=== PATIENT | male | born 1965 | race Caucasian/White ===

== ENCOUNTER → 2018-10-25 | Outpatient (CLI) | payer OTHER ==
--- NOTE | 2018-10-25 16:13 | RAD ---
Right lower extremity venous duplex study 10/25/2018 4:09 PM Clinical History: Right leg pain and swelling Technique: Using a combination of real time ultrasound imaging and color-flow and pulse Doppler imaging techniques, including spectral analysis, graded compression and augmentation, duplex evaluation of the deep venous system of the right lower extremity was performed. Multiple images were obtained. Findings: There is no sonographic evidence of deep venous thrombosis involving the visualized deep venous structures of the right lower extremity Impression: No evidence of deep venous thrombosis involving the right lower extremity Electronically signed by: Sujit Crabtree MD (10/25/2018 4:10 PM) [id number]
== END | disposition home or self-care (01) ==
LOC: US 15:14
PROVIDERS: ATTEND Family Medicine
DX: M79.604 Pain in right leg (principal); M79.89 Other specified soft tissue disorders; Z86.718 Personal history of other venous thrombosis and embolism
CPT/HCPCS: 93971

== ENCOUNTER 2020-03-23 04:56 | Inpatient (IN) | payer OTHER ==
[~2020-03-23] VITALS: Ht 180.3 cm; Wt 114.0 kg
[2020-03-23 05:37] LABS: BILIRUBIN,URINE NEG (NEG); CLARITY,URINE CLEAR; COLOR,URINE AMBER; GLUCOSE,URINE NEG (NEG)
[2020-03-23 05:38] LABS: BACTERIA,URINE 0 /HPF (0-FEW); NITRITE,URINE NEG (NEG); RBC,URINE 0 /HPF (0-2); WBC,URINE 0 /HPF (0-4)
--- NOTE | 2020-03-23 05:51 | PHYS DOC ---
Past History Past Medical History: GERD, Hypertension, Kidney Stones (ASHLEE CASTELAN DO) Past Surgical History: Other Additional Past Surgical Histo: abdominal surgery (ASHLEE CASTELAN DO) Smoking: Non-smoker Alcohol Use: Heavy Drug Use: None (ASHLEE CASTELAN DO) General Adult EDM: Chief Complaint: ABDOMINAL PAIN HPI: HPI: 54-year-old male presents with left lower quadrant abdominal pain with associated nausea x2 days. Patient reports he did have one episode of vomiting. Patient reports some associated constipation and fever T-max 101. Patient reports history of prior kidney stones and feels the symptoms are similar to his prior kidney stone episodes. Denies any trauma. Denies rash. Denies hematuria or dysuria. Denies history of diverticulitis. (ASHLEE CASTELAN DO) Review of Systems: Review of Systems: Constitutional: Reports fever and chills Eyes: Denies redness or eye pain HENT: Denies nasal congestion or sore throat Respiratory: Denies cough or shortness of breath Cardiovascular: Denies chest pain or palpitations GI: Reports abdominal pain, nausea, vomiting, and constipation : Denies dysuria or hematuria Musculoskeletal: Denies back pain or joint pain Integument: Denies rash or skin lesions Neurologic: Denies headache, focal weakness or sensory changes Complete systems were reviewed and found to be within normal limits, except as documented in this note. (ASHLEE CASTELAN DO) Current Medications: Current Meds: Current Medications Medications (Trade) Dose Ordered Sig/Agnes Start Time Stop Time Status Last Admin Dose Admin Ketorolac Tromethamine (Toradol 15mg Vial) 15 mg 1X ONCE 03/23/20 05:30 03/23/20 05:31 UNV Metoclopramide HCl (Reglan Vial) 10 mg 1X ONCE 03/23/20 05:30 03/23/20 05:31 UNV Sodium Chloride 1,000 ml @ 1,000 mls/hr 1X ONCE 03/23/20 05:30 03/23/20 06:29 UNV (ASHLEE CASTELAN DO) Allergies: Allergies: Allergies Coded Allergies Type Severity Reaction Last Updated Verified No Known Drug Allergies 03/23/20 No (ASHLEE CASTELAN DO) Physical Exam: PE: Constitutional: Well developed, well nourished, no acute distress, non-toxic appearance HENT: Normocephalic, atraumatic Eyes: Conjunctiva normal, no discharge Neck: Normal range of motion, no tenderness, supple Lungs & Thorax: No respiratory distress, equal chest rise and fall Abdomen: Soft, left lower quadrant tenderness on palpation, no guarding Skin: Warm, dry, no erythema, no rash Back: No tenderness, no CVA tenderness Extremities: No tenderness, ROM intact, no edema Neurologic: Alert and oriented X 3, no focal deficits noted Psychologic: Affect normal, judgment normal (ASHLEE CASTELAN DO) Current Patient Data: Labs: Laboratory Tests Test 03/23/20 05:14 Urine Collection Type Unknown Urine Color Catherine Urine Clarity Clear Urine pH 5.5 Urine Specific [employer] >=1.030 Urine Protein Neg (NEG-TRACE) Urine Glucose (UA) Neg mg/dL (NEG) Urine Ketones (Stick) Neg mg/dL (NEG) Urine Blood Neg (NEG) Urine Nitrite Neg (NEG) Urine Bilirubin Neg (NEG) Urine Urobilinogen Dipstick 4.0 mg/dL (0.2 mg/dL) Urine Leukocyte Esterase Neg (NEG) Urine RBC 0 /HPF (0-2) Urine WBC 0 /HPF (0-4) Urine Squamous Epithelial Cells None /LPF Urine Bacteria 0 /HPF (0-FEW) Vital Signs: Vital Signs Date Time Temp Pulse Resp B/P (MAP) Pulse Ox O2 Delivery O2 Flow Rate FiO2 03/23/20 05:03 99.7 101 20 161/92 (115) Room Air (ASHLEE CASTELAN DO) EKG: EKG: [] (ASHLEE CASTELAN DO) Radiology/Procedures: Radiology/Procedures: [] (ASHLEE CASTELAN DO) Impressions: EXAM: CT ABDOMEN/PELVIS WITHOUT CONTRAST. HISTORY: Left lower quadrant pain. TECHNIQUE: Computed tomography of the abdomen and pelvis was performed without intravenous contrast. One or more of the following individualized dose reduction techniques were utilized for this examination: 1. Automated exposure control. 2. Adjustment of the mA and/or kV according to patient size. 3. Use of iterative reconstruction technique. COMPARISON: None. FINDINGS: Lung windows through the visualized portions of the bases reveal mild atelectasis. Bone windows reveal no suspicious lesions. Wall thickening and stranding about the sigmoid colon indicate mild diverticulitis. A few tiny foci of pneumoperitoneum indicate microperforation. There is no drainable collection. The appendix is not inflamed. There is no small bowel obstruction. Small supraumbilical hernias in the midline containing only fat. A right inguinal hernia also contains only fat. Hypoattenuation of the hepatic parenchyma indicates severe diffuse hepatic steatosis. The gallbladder, pancreas, adrenal glands, and spleen are unremarkable. There is a 2 mm calculus in the right kidney. There are no pathologically enlarged lymph nodes. IMPRESSION: 1. Mild sigmoid diverticulitis. Trace adjacent pneumoperitoneum indicates microperforation. No drainable collection. 2. Severe diffuse hepatic steatosis. 3. 2 mm right renal calculus. 4. Small supraumbilical and right inguinal hernias containing only fat. Electronically signed by: Nathaniel Doe MD (03/23/2020 6:43 AM) [facility] DICTATED AND SIGNED BY: DEBBIE DOE MD DATE: 03/23/20642 CC: LILIANE MEJIA DO; ASHLEE CASTELAN DO; CANDIS WHITING ~ (LILIANE MEJIA DO) Course & Med Decision Making: Course & Med Decision Making Pertinent Labs and Imaging studies reviewed. (See chart for details) Patient with past medical history of kidney stones presents with left lower q uadrant abdominal pain with associated nausea and vomiting. Patient also reports some issues with constipation and fever T-max 101. Patient is afebrile upon arrival. Symptomatic treatment provided. IV fluid hydration given. Labs obtained and posted to chart. CT abdomen/pelvis obtained with radiologist interpretation pending. Signout to Dr. Mejia for further evaluation and final disposition. Discussed current findings and plan with patient, who acknowledges understanding and agreement. (ASHLEE CASTELAN DO) Course & Med Decision Making The patient has acute uncomplicated diverticulitis by CT. He also has evidence of microperforation so he meets criteria for inpatient management. I will give him Zosyn and admit him to the hospital. I spoke with Dr. Bowie and he has accepted the patient for admission. The patient is in agreement with this plan. (LILIANE MEJIA DO) Dragon Disclaimer: Dragon Disclaimer: This electronic medical record was generated, in whole or in part, using a voice recognition dictation system. (ASHLEE CASTELAN DO) Departure Departure: Impression: Primary Impression: Left lower quadrant abdominal pain Additional Impression: Diverticulitis Disposition: ADMITTED INPT THIS HOSP Admitting Physician: Janel Bowie (LILIANE MEJIA DO) Condition: STABLE Referrals: CANDIS WHITING (PCP) ASHLEE CASTELAN DO Mar 23, 2020 05:51 LILIANE MEJIA DO Mar 23, 2020 07:05
[2020-03-23] MEDS ORDERED: IV NORMAL SALINE 1,000ML 1,000 ML IV ONE (06:00)
[2020-03-23] MEDS ORDERED: KETOROLAC 15 MG/ML VIAL. IVP ONE (06:00)
[2020-03-23] MEDS ORDERED: METOCLOPRAMIDE HCL 10 MG/2 ML VIAL. IVP ONE (06:00)
[2020-03-23 06:05] LABS: BASO # 0.1 x10^3/uL (0.0-0.2); BASO % 1 % (0-3); EOS # 0.2 x10^3/uL (0.0-0.7); EOS % 1 % (0-3); HEMATOCRIT 44.7 % (39.0-53.0); LYMPH # 1.8 x10^3/uL (1.0-4.8); LYMPH % 15 % (24-48); MEAN CORPUSCULAR HEMOGLOBIN 33 pg (25-35); MEAN CORPUSCULAR HGB CONC 34 g/dL (31-37); MEAN CORPUSCULAR VOLUME 99 fL (79-100); MONO # 1.2 x10^3/uL (0.0-1.1); MONO % 10 % (0-9); NEUT # 8.7 x10^3uL (1.8-7.7); NEUT % 73 % (31-73); PLATELET COUNT 199 x10^3/uL (140-400); RED BLOOD COUNT 4.52 x10^6/uL (4.30-5.70); RED CELL DISTRIBUTION WIDTH 13.3 % (11.5-14.5)
[2020-03-23 06:07] LABS: CALCIUM 8.9 mg/dL (8.5-10.1); CREATININE 0.9 mg/dL (0.7-1.3); GFR 87.3; POTASSIUM 3.4 mmol/L (3.5-5.1)
[2020-03-23 06:11] LABS: ALBUMIN 3.5 g/dL (3.4-5.0); ALBUMIN/GLOBULIN RATIO 0.9 (1.0-1.7); MAGNESIUM 1.7 mg/dL (1.8-2.4); TOTAL BILIRUBIN 1.1 mg/dL (0.2-1.0); TOTAL PROTEIN 7.5 g/dL (6.4-8.2)
--- NOTE | 2020-03-23 06:46 | RAD ---
EXAM: CT ABDOMEN/PELVIS WITHOUT CONTRAST. HISTORY: Left lower quadrant pain. TECHNIQUE: Computed tomography of the abdomen and pelvis was performed without intravenous contrast. One or more of the following individualized dose reduction techniques were utilized for this examination: 1. Automated exposure control. 2. Adjustment of the mA and/or kV according to patient size. 3. Use of iterative reconstruction technique. COMPARISON: None. FINDINGS: Lung windows through the visualized portions of the bases reveal mild atelectasis. Bone windows reveal no suspicious lesions. Wall thickening and stranding about the sigmoid colon indicate mild diverticulitis. A few tiny foci of pneumoperitoneum indicate microperforation. There is no drainable collection. The appendix is not inflamed. There is no small bowel obstruction. Small supraumbilical hernias in the midline containing only fat. A right inguinal hernia also contains only fat. Hypoattenuation of the hepatic parenchyma indicates severe diffuse hepatic steatosis. The gallbladder, pancreas, adrenal glands, and spleen are unremarkable. There is a 2 mm calculus in the right kidney. There are no pathologically enlarged lymph nodes. IMPRESSION: 1. Mild sigmoid diverticulitis. Trace adjacent pneumoperitoneum indicates microperforation. No drainable collection. 2. Severe diffuse hepatic steatosis. 3. 2 mm right renal calculus. 4. Small supraumbilical and right inguinal hernias containing only fat. Electronically signed by: Nathaniel Deo MD (03/23/2020 6:43 AM) [facility]
[2020-03-23] MEDS ORDERED: PIPERACILLIN/TAZOBACTAM 3.375 GM in IV NORMAL SALINE 50ML 50 ML IV ONE (07:15)
[2020-03-23] MEDS ORDERED: IV DEXTROSE 5% - 0.9 % NACL 1,000 ML IV ONE (07:15)
[2020-03-23] MEDS ORDERED: IV NORMAL SALINE 50ML 50 ML ONE (07:15)
[2020-03-23] MEDS ORDERED: PIPERACILLIN/TAZOBACTAM 3.375 GM VIAL IV ONE (07:15)
[2020-03-23] MEDS ORDERED: ONDANSETRON PF 4 MG/2 ML VIAL. IVP PRN (07:15)
[2020-03-23 08:13] VITALS: BP 162/99
[2020-03-23] MEDS: ACETAMINOPHEN 325 MG TABLET PO PRN ×2 (11:34→19:51)
[2020-03-23] MEDS: PIPERACILLIN/TAZOBACTAM 3.375 GM in IV NORMAL SALINE 50ML 50 ML IV SCH ×2 (11:36→17:07)
[2020-03-23 11:38] VITALS: BP 151/83
--- NOTE | 2020-03-23 12:01 | NUR ---
NSG NOTE; ADMISSION ADMIT TO ROOM 117 AT 0757 FROM ED VIA CART ACCOMP BY EMS PERSONNEL C/O LLQ ABD PAIN, NAUSEA X2 DAYS. CAME TO THE ED THINKING HE HAD RENAL STONES. ADMITTED FOR DIVERTICULITIS
[2020-03-23] MEDS ORDERED: FLU VACC QS 2020-21(6MOS+)/PF 0.5 ML SYRINGE. VAX IM ONE (13:00)
[2020-03-23] MEDS: MORPHINE SULFATE 2 MG/ML DISP.SYRIN. IVP PRN ×2 (13:11→19:21)
[2020-03-23 14:35] VITALS: BP 154/87
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
[2020-03-23] MEDS: POTASSIUM CL 40MEQ D5-0.45NACL 1,000 ML IV SCH (17:07)
[2020-03-23 19:26] VITALS: BP 166/80
[2020-03-24] MEDS: MORPHINE SULFATE 2 MG/ML DISP.SYRIN. IVP PRN ×2 (00:48→06:45)
[2020-03-24] MEDS: PIPERACILLIN/TAZOBACTAM 3.375 GM in IV NORMAL SALINE 50ML 50 ML IV SCH ×4 (00:49→18:01)
[2020-03-24] MEDS: POTASSIUM CL 40MEQ D5-0.45NACL 1,000 ML IV SCH ×2 (05:28→15:41)
[2020-03-24 07:12] VITALS: BP 143/82
[2020-03-24 08:33] LABS: HEMATOCRIT 42.5 % (39.0-53.0); RED BLOOD COUNT 4.23 x10^6/uL (4.30-5.70); RED CELL DISTRIBUTION WIDTH 13.2 % (11.5-14.5); WHITE BLOOD COUNT 11.9 x10^3/uL (4.0-11.0)
[2020-03-24 08:55] LABS: ALBUMIN 2.8 g/dL (3.4-5.0); ALBUMIN/GLOBULIN RATIO 0.7 (1.0-1.7); CALCIUM 8.1 mg/dL (8.5-10.1); CREATININE 0.9 mg/dL (0.7-1.3); GFR 87.3; POTASSIUM 3.9 mmol/L (3.5-5.1); TOTAL BILIRUBIN 1.8 mg/dL (0.2-1.0); TOTAL PROTEIN 6.7 g/dL (6.4-8.2)
[2020-03-24] MEDS: LACTOBACILLUS RHAMNOSUS GG 1 CAPSULE. PO SCH ×2 (09:48→19:34)
[2020-03-24] MEDS: MORPHINE SULFATE 2 MG/ML DISP.SYRIN. IV PRN ×3 (10:11→19:33)
[2020-03-24 11:25] VITALS: BP 117/63
[2020-03-24] MEDS ORDERED: IOHEXOL 300 MG/ML 75 ML VIAL. IV ONE (13:30)
[2020-03-24] MEDS ORDERED: CONTRAST GIVEN. MC PRN (13:45)
[2020-03-24 15:35] VITALS: BP 155/73
--- NOTE | 2020-03-24 16:38 | RAD ---
Exam: CT abdomen and pelvis with contrast INDICATION: Diverticulitis with microperforation, follow-up TECHNIQUE: Sequential axial images through the abdomen and pelvis obtained following the administration of 75 mL of Isovue-370 IV contrast. Sagittal and coronal reformatted images were reconstructed from the axial data and reviewed. Comparisons: 03/23/2020 FINDINGS: Heart size is normal. No pericardial effusion. Strandy opacities at the dependent portion lungs likely representing atelectasis. No pleural effusion. There is diffuse hepatic steatosis. Spleen, pancreas, gallbladder and adrenals are unremarkable. No perinephric inflammation or hydronephrosis. Several nonobstructing renal calculi are noted bilaterally. No ureteral calculi. Bladder is decompressed not well evaluated. Prostate is not enlarged. Inflammatory changes at the sigmoid colon are again noted. There is resolution of the small microfoci of adjacent air. No adjacent fluid collection or free fluid. Remainder of the large and small bowel are unremarkable. No obstruction. Appendix is normal. Abdominal aorta has a normal course and caliber. Abdominal vasculature is patent. No enlarged intra-abdominal lymph nodes are identified. No suspicious osseous lesions or acute fractures. Redemonstration of small ventral fat-containing hernias. IMPRESSION: 1. Findings again of diverticulitis at the sigmoid colon. Previously seen microfoci of air adjacent to the area of diverticulitis has resolved. No adjacent fluid collection. 2. Other stable incidental findings described above. Exposure: One or more of the following in the visualized dose reduction techniques were utilized for this examination: 1. Automated exposure control 2. Adjustment of the MA and/or KV according to patient size 3. Use of iterative of reconstructive technique Electronically signed by: Cuong Chavez MD (03/24/2020 4:35 PM) [id number]
[2020-03-24 18:23] VITALS: BP 142/72
[2020-03-24] MEDS ORDERED: ONDANSETRON PF 4 MG/2 ML VIAL. IVP PRN (19:30)
--- NOTE | 2020-03-24 19:42 | PN ---
DATE: 03/24/2020 SUBJECTIVE: The patient is resting, almost flat in bed, in no apparent respiratory distress. On questioning him, he has had multiple loose bowel movements; however, he said that generally his pain is much less. He only feels the pain when he starts walking. Denied any nausea or vomiting. PHYSICAL EXAMINATION: GENERAL: Has had no fever since yesterday afternoon. When I examined him, he looked well and was clearly in no apparent respiratory distress. No pallor, jaundice, cyanosis or thyromegaly. No jugular venous distention or limb edema. VITAL SIGNS: Her heart rate was 65, blood pressure was 117/63, temperature was 99.3, respiratory rate was 18 and oxygen saturation was 96%. The rest of the clinical exam is stable. ABDOMEN: Distended, soft. He has mild tenderness in the left lower quadrant. No guarding or rigidity. No organomegaly. All cranial nerves intact. Bowel sounds normal. NEUROLOGIC: He was grossly intact. His intake and output are incompletely recorded. LABORATORY DATA: His white cell count is down to 11,900, hemoglobin 14, hematocrit 42, MCV 101 and platelet count of 177,000. Serum sodium was 135, potassium 3.9, chloride 102, bicarbonate 24, anion gap of 9, BUN 9, creatinine 0.9, estimated GFR was 87 mL per minute. Her glucose was 104, calcium was 8.1. Total bilirubin is 1.8. AST, ALT, alkaline phosphatase were normal. Total protein 6.7, albumin was 2.8. ASSESSMENT: Sigmoid diverticulitis with microperforation. PLAN: To continue with IV Zosyn 3.375 grams IV q. 6 hourly. Continue with IV morphine as well as ondansetron, continue his IV fluid. We did repeat his CT scan of the abdomen with contrast and if there is no worsening or perforation, we will start him on a clear liquid diet. LOUISA MURPHY MD DR: TENZIN/ryan JOB#: [id number] / [id number]
[2020-03-25] MEDS: PIPERACILLIN/TAZOBACTAM 3.375 GM in IV NORMAL SALINE 50ML 50 ML IV SCH ×2 (00:55→06:08)
[2020-03-25] MEDS: POTASSIUM CL 40MEQ D5-0.45NACL 1,000 ML IV SCH ×2 (00:56→06:30)
[2020-03-25] MEDS: MORPHINE SULFATE 2 MG/ML DISP.SYRIN. IV PRN (01:46)
--- NOTE | 2020-03-25 02:56 | NUR ---
Nursing note: Pt up ad leonor, c/o pain twice on this shift. Pt also c/o nausea but managed by zofran IV; no vomiting this shift. Pt ate 2 jello cups and tolerated well.
[2020-03-25 06:27] VITALS: BP 132/78
[2020-03-25 07:53] LABS: CALCIUM 8.7 mg/dL (8.5-10.1); GFR 77.3; POTASSIUM 4.1 mmol/L (3.5-5.1)
[2020-03-25 08:19] LABS: HEMATOCRIT 44.1 % (39.0-53.0); HEMOGLOBIN 14.6 g/dL (13.0-17.5); RED BLOOD COUNT 4.35 x10^6/uL (4.30-5.70); RED CELL DISTRIBUTION WIDTH 13.4 % (11.5-14.5); WHITE BLOOD COUNT 9.3 x10^3/uL (4.0-11.0)
[2020-03-25] MEDS: LACTOBACILLUS RHAMNOSUS GG 1 CAPSULE. PO SCH (08:27)
--- NOTE | 2020-03-25 10:15 | NUR ---
NURSING NOTE PT ON BEDSIDE THIS AM UPON ASSESSMENT AND MEDICATION ADMINISTRATION. PT A&O. PT DENIES PAIN THIS AM STATES HE FEELS MUCH BETTER AND WANTING TO GO HOME TODAY. PT HAS CLEAR LIQ DIET FOR BREAKFAST, WILL SPEAK WITH DR MURPHY IF PT CAN ADVANCE DIET FOR LUNCH AND SEE IF HE CAN TOLERATE IT. WILL CONTINUE TO MONITOR. SCOTT SOLO.
[2020-03-25 10:16] VITALS: BP 135/76
[2020-03-25] MEDS ORDERED: METR-111 PO (12:30)
[2020-03-25] MEDS ORDERED: CIPR500S2 PO (12:30)
--- NOTE | 2020-03-25 13:06 | NUR ---
NURSING NOTE DISCHARGE PT DISCHARGED HOME VIA AMBULATION ACCOMPANIED BY SELF, PT CAR AT ED, SECURITY TO ESCORT PT TO ED. PT GIVEN WRITTEN AND VERBAL DISCHARGE INSTRUCTIONS WELL 2 ANTIBIOTICS AND PAIN MEDICATION. PT GIVEN EXTENSIVE EDUCATION ABOUT AVOIDING ALCOHOL WITH HIS ANTIBIOTICS. PT GIVEN EDUCATION ABOUT DIVERTICULITIS. PT DENIES QUESTIONS AND IS ANXIOUS TO GO HOME. NO COMPLICATIONS. SCOTT SOLO.
--- NOTE | 2020-03-25 14:16 | DS ---
DATE OF DISCHARGE: 03/25/2020 HOSPITAL COURSE: The patient was admitted with abdominal pain, was diagnosed with mild sigmoid diverticulitis with microperforation. We kept him n.p.o., started him on IV antibiotic in the form of Zosyn, IV fluid, pain medication, antiemetic and did very well. His white cell count came down nicely from 12,000 to 9000. He did have multiple episodes of loose bowel movement, but his C. diff was negative and his potassium was low at 3.5, which has improved to 4.1. We did repeat his CT scan of the abdomen and pelvis and this showed the finding again of diverticulitis of the sigmoid colon. Previously seen micro foci of air adjacent to the area of diverticulitis had resolved. No adjacent fluid collection. The patient's diet was advanced as he tolerated his diet without difficulty, has had no more abdominal pain, no more diarrhea, has been afebrile. A decision was made to discharge him home to complete the treatment as an outpatient with oral Cipro and Flagyl. PHYSICAL EXAMINATION: GENERAL: When I saw him this afternoon, he looked well and was clearly in no apparent respiratory distress. No pallor, jaundice, cyanosis or thyromegaly. No jugular venous distention. No limb edema. VITAL SIGNS: His heart rate was 72, blood pressure was 135/76, temperature was 98.4, respiratory rate was 18 and oxygen saturation was 95%. HEAD, EYES, EARS, NOSE AND THROAT: Showed normocephalic, atraumatic. NECK: Supple. HEART: Showed normal first and second heart sounds. No gallop, rub or murmur. CHEST: Clear to auscultation. No crepitation or rhonchi. ABDOMEN: Distended, soft. No guarding or rigidity. No organomegaly. All hernial orifice intact. Bowel sounds normal. NEUROLOGIC: He was grossly intact. His intake over the last 24 hours was 786, no output was recorded. LABORATORY DATA: This morning showed a serum sodium 136, potassium 4.1, chloride 101, bicarbonate 27, anion gap of 8, BUN 7, creatinine 1, estimated GFR was 77 mL per minute. His glucose was 104, calcium was 8.7. White cell count was 9300, hemoglobin 14.6, hematocrit 44, MCV 101 and platelet count of 189. DISCHARGE MEDICATIONS: He was discharged home to continue treatment with oral ciprofloxacin 500 mg twice a day for 7 days, Flagyl or metronidazole 250 mg 3 times a day for 7 days. He was also discharged on hydrocodone 5/325 one tablet every 6 hours. FINAL DISCHARGE DIAGNOSES: Sigmoid diverticulitis with microperforation that has resolved. The patient will finish treatment as an outpatient, was advised to follow with his primary care physician and perhaps consider Gastroenterology consult and appointment for colonoscopy. LOUISA MURPHY MD DR: TENZIN/ryan JOB#: [id number] / [id number]
== END 2020-03-25 13:08 | disposition home or self-care (01) | DRG 392 ==
LOC: ER 04:56 → 1 SOUTH 07:00
PROVIDERS: ADMIT Internal Medicine; ATTEND Internal Medicine
DX: K57.20 Diverticulitis of large intestine with perforation and abscess without bleeding (principal); I10 Essential (primary) hypertension; K59.00 Constipation, unspecified; K76.0 Fatty (change of) liver, not elsewhere classified; N20.0 Calculus of kidney; Z80.1 Family history of malignant neoplasm of trachea, bronchus and lung; Z87.442 Personal history of urinary calculi; K21.9 Gastro-esophageal reflux disease without esophagitis; M19.90 Unspecified osteoarthritis, unspecified site; Z88.1 Allergy status to other antibiotic agents; E87.6 Hypokalemia
CPT/HCPCS: 36415; 74176; 74177; 80048; 80053; 81001; 83690; 83735; 85025; 85027; 87493; 90471; 90686; 96361; 96365; 96375; 99285; J1885; J2270; J2405; J2543; J2765; J7042; Q9967; J7030